=== PATIENT | female | born 1950 | race Hispanic/Latino ===

== ENCOUNTER → 2018-08-18 | Outpatient (CLI) | payer OTHER | END | disposition home or self-care (01) | LOC: RAH 12:52 | PROVIDERS: ATTEND Internal Medicine | DX: N60.02 Solitary cyst of left breast (principal); N63.23 Unspecified lump in the left breast, lower outer quadrant | CPT/HCPCS: 76641; 77065 ==

== ENCOUNTER → 2019-03-31 | Outpatient (CLI) | payer OTHER | END | disposition home or self-care (01) | LOC: RAH 13:24 | PROVIDERS: ATTEND Internal Medicine | DX: N60.02 Solitary cyst of left breast (principal); N63.23 Unspecified lump in the left breast, lower outer quadrant | CPT/HCPCS: 76641 ==

== ENCOUNTER → 2019-09-16 | Outpatient (CLI) | payer OTHER | END | disposition home or self-care (01) | LOC: RAH 13:03 | PROVIDERS: ATTEND Internal Medicine | DX: N63.20 Unspecified lump in the left breast, unspecified quadrant (principal); N60.02 Solitary cyst of left breast | CPT/HCPCS: 76641; 77066 ==

== ENCOUNTER → 2020-08-31 | Outpatient (CLI) | payer OTHER | END | disposition home or self-care (01) | LOC: RAH 08:47 | PROVIDERS: ATTEND Internal Medicine | DX: I11.9 Hypertensive heart disease without heart failure (principal); E78.5 Hyperlipidemia, unspecified | CPT/HCPCS: 93306; 93356 ==

== ENCOUNTER → 2020-11-20 | Outpatient (CLI) | payer OTHER | END | disposition home or self-care (01) | LOC: RAH 10-13 10:11 | PROVIDERS: ATTEND Internal Medicine | DX: N60.02 Solitary cyst of left breast (principal) | CPT/HCPCS: 77066 ==

== ENCOUNTER → 2021-09-19 | Outpatient (CLI) | payer OTHER | END | disposition home or self-care (01) | LOC: RAH 09:54 | PROVIDERS: ATTEND Internal Medicine | DX: I70.1 Atherosclerosis of renal artery (principal); I10 Essential (primary) hypertension; R80.9 Proteinuria, unspecified | CPT/HCPCS: 76770; 93975 ==

== ENCOUNTER → 2022-02-25 | Outpatient (CLI) | payer OTHER | END | disposition home or self-care (01) | LOC: RAH 13:50 | PROVIDERS: ATTEND Internal Medicine | DX: N60.02 Solitary cyst of left breast (principal) | CPT/HCPCS: 76641; 77066 ==

== ENCOUNTER → 2022-03-04 | Outpatient (CLI) | payer OTHER | END | disposition home or self-care (01) | LOC: RAH 09:32 | PROVIDERS: ATTEND Internal Medicine | DX: S83.241A Other tear of medial meniscus, current injury, right knee, initial encounter (principal); S83.281A Other tear of lateral meniscus, current injury, right knee, initial encounter; X58.XXXA Exposure to other specified factors, initial encounter; Y93.89 Activity, other specified; Y92.89 Other specified places as the place of occurrence of the external cause; Y99.8 Other external cause status | CPT/HCPCS: 73721 ==

== ENCOUNTER → 2022-03-25 | Outpatient (CLI) | payer OTHER | END | disposition home or self-care (01) | LOC: RAH 14:30 | PROVIDERS: ATTEND Internal Medicine | DX: M47.816 Spondylosis without myelopathy or radiculopathy, lumbar region (principal); M48.07 Spinal stenosis, lumbosacral region; M47.818 Spondylosis without myelopathy or radiculopathy, sacral and sacrococcygeal region; R93.7 Abnormal findings on diagnostic imaging of other parts of musculoskeletal system | CPT/HCPCS: 72100; 72220 ==

== ENCOUNTER → 2023-04-22 | Outpatient (CLI) | payer OTHER | END | disposition home or self-care (01) | LOC: RAH 14:03 | PROVIDERS: ATTEND Internal Medicine | DX: N60.02 Solitary cyst of left breast (principal); R92.8 Other abnormal and inconclusive findings on diagnostic imaging of breast; R92.2 Inconclusive mammogram | CPT/HCPCS: 77066 ==

== ENCOUNTER → 2024-04-23 | Outpatient (CLI) | payer OTHER | END | disposition home or self-care (01) | LOC: RAH 09:51 | PROVIDERS: ATTEND Internal Medicine | DX: N60.02 Solitary cyst of left breast (principal); R92.333 Mammographic heterogeneous density, bilateral breasts | CPT/HCPCS: 76641; 77066 ==

== ENCOUNTER → 2025-05-03 | Outpatient (CLI) | payer OTHER ==
--- NOTE | 2025-05-04 14:17 | HMCIMG ---
DIGITAL both DIAGNOSTIC MAMMOGRAM Technique: The digital mammographic examination of both breasts in craniocaudal, mediolateral oblique views along with CAD was obtained. Ultrasound of the left breast was also performed. History: This is a 74 years year-old female 0, para0 Ab0 . Patient is here for follow-up for cyst in the left breast. Patient has no family history of breast cancer. Patient has no complaint Reference:Prior mammogram from 04/23/2024, 04/22/2023 are available.. Breast composition: Breast composition C: The breasts are heterogeneously dense, which may obscure small masses. Finding: The digital mammographic examination of both breasts in craniocaudal and mediolateral oblique view along with CAD demonstrates to be moderately heterogeneously dense with nodular dense breasts. Ultrasound the left breast demonstrated no solid or cystic lesion seen. There are multiple scattered macrocalcification in both breasts more pronounced on the left breast. The density seen in left breast on the coned-down compression appears to be fibroglandular stromal elements.. There is no evidence of any dendritic mass, cluster microcalcification or architectural distortion. The retromammary fat appears to be normal. IMPRESSION: Unchanged from prior mammography. NO RADIOGRAPHIC EVIDENCE OF MALIGNANT CHANGES. WE WOULD RECOMMEND ANNUAL FOLLOW UP WITH TOMOSYNTHESIS UNLESS OTHERWISE CLINICALLY INDICATED. Due to moderately nodular dense breasts I would recommend bilateral annual sonogram. FINAL ASSESSMENT: ACR: BI-RAD- 2. Benign: Also a negative assessment; finding(s) benign abnormalities. Management: Routine mammography screening. Likelihood of Cancer: Essentially 0% likelihood of malignancy. NOTE: IF A WORK-UP OF THIS PATIENT LEADS TO A BIOPSY, PLEASE FORWARD A COPY OF THE PATHOLOGY REPORT TO OUR OFFICE REQUIRED BY [employer] APRIL 13, 1994. A NEGATIVE MAMMOGRAM SHOULD NOT PRECLUDE BIOPSY OF A CLINICALLY PALPABLE SUSPICIOUS MASS, 10% OF BREAST CANCERS ARE MAMMOGRAPHICALLY OCCULT. THIS MAMMOGRAPHY FACILITY IS FULLY ACCREDITED BY THE FOOD AND [employer]UG [employer] (FDA). THANK YOU FOR THIS REFERRAL.
--- NOTE | 2025-05-04 14:19 | HMCIMG ---
Left BREAST ULTRASOUND: CLINICAL HISTORY: Follow-up for left breast sonogram COMPARISON: Prior sonogram from 04/23/2024.: Finding: Real-time examination of the [right/left] breast demonstrates heterogeneous echotexture throughout the breast without evidence of focal solid or cystic masses. There are 2 benign small axillary lymph node measuring 0.6 x 0.4 cm the second one also measures 0.6 x 0.4 cm. IMPRESSION: No solid or cystic lesion lesion seen. I would recommend annual mammography with tomography. With bilateral breast sonogram due to dense breasts.. FINAL ASSESSMENT: ACR: BI-RAD- 2. Benign: Also a negative assessment; finding(s) benign abnormalities. Management: Routine mammography screening. Likelihood of Cancer: Essentially 0% likelihood of malignancy.
== END | disposition home or self-care (01) ==
LOC: RAH 10:05
PROVIDERS: ATTEND Internal Medicine
DX: N60.02 Solitary cyst of left breast (principal); R92.333 Mammographic heterogeneous density, bilateral breasts
CPT/HCPCS: 76641; 77066

== ENCOUNTER → 2025-06-27 | Outpatient (CLI) | payer OTHER ==
--- NOTE | 2025-07-01 12:53 | HMCIMG ---
Right BREAST ULTRASOUND: Clinical history: Mastodynia Finding: Real-time examination of the [right/left] breast demonstrates homogeneous echotexture throughout the breast without evidence of focal solid or cystic masses. IMPRESSION: NORMAL right BREAST ULTRASOUND. I would recommend annual mammogram with tomography. FINAL ASSESSMENT: ACR: BI-RAD - 1. Negative Mammogram.
== END | disposition home or self-care (01) ==
LOC: RAH 10:44
PROVIDERS: ATTEND Internal Medicine
DX: N64.4 Mastodynia (principal)
CPT/HCPCS: 76641